=== PATIENT | female | born 1970 | race Caucasian/White ===

== ENCOUNTER 2021-08-26 08:13 | Outpatient (CLI) | payer MEDICARE, MEDICAID | END 2021-08-26 08:14 | disposition home or self-care (01) | LOC: BICCT 08:13 | PROVIDERS: ATTEND Student in an Organized Health Care Education/Training Program | DX: R10.84 Generalized abdominal pain (principal); N83.8 Other noninflammatory disorders of ovary, fallopian tube and broad ligament; Z90.49 Acquired absence of other specified parts of digestive tract; Z90.710 Acquired absence of both cervix and uterus | CPT/HCPCS: 74178 ==

== ENCOUNTER 2021-08-30 06:49 | Outpatient (CLI) | payer MEDICARE, MEDICAID | END 2021-08-30 06:50 | disposition home or self-care (01) | LOC: BICULT 06:49 | PROVIDERS: ATTEND Student in an Organized Health Care Education/Training Program | DX: N83.8 Other noninflammatory disorders of ovary, fallopian tube and broad ligament (principal) | CPT/HCPCS: 76856 ==

== ENCOUNTER 2022-11-14 12:56 | Emergency (ER) | payer OTHER, MEDICARE, MEDICAID | END 2022-11-14 14:34 | disposition home or self-care (01) | LOC: ERS 12:56 | DX: S52.501A Unspecified fracture of the lower end of right radius, initial encounter for closed fracture (principal); E03.9 Hypothyroidism, unspecified; W01.0XXA Fall on same level from slipping, tripping and stumbling without subsequent striking against object, initial encounter | CPT/HCPCS: 25500 ==

== ENCOUNTER 2022-12-28 07:00 | Outpatient (CLI) | payer MEDICARE, MEDICAID ==
[2022-12-28] MEDS ORDERED: Iopamidol 370 76% 100 ML VIAL ONE (11:05)
== END 2022-12-28 07:01 | disposition home or self-care (01) ==
LOC: CT 07:00
PROVIDERS: ATTEND Student in an Organized Health Care Education/Training Program
DX: R06.02 Shortness of breath (principal); R00.0 Tachycardia, unspecified; R79.89 Other specified abnormal findings of blood chemistry; J98.4 Other disorders of lung; I26.99 Other pulmonary embolism without acute cor pulmonale
CPT/HCPCS: 71275

== ENCOUNTER 2023-02-16 09:50 | Emergency (ER) | payer MEDICARE, MEDICAID | END 2023-02-16 11:41 | LOC: ERS 09:50 | DX: S09.90XA Unspecified injury of head, initial encounter (principal); E03.9 Hypothyroidism, unspecified; K21.9 Gastro-esophageal reflux disease without esophagitis; G40.909 Epilepsy, unspecified, not intractable, without status epilepticus; Z79.899 Other long term (current) drug therapy; W19.XXXA Unspecified fall, initial encounter | CPT/HCPCS: 70450 ==

== ENCOUNTER 2023-08-09 16:37 | Emergency (ER) | payer MEDICAID, MEDICARE | END 2023-08-09 19:39 | disposition home or self-care (01) | LOC: ERS 16:37 | DX: M79.641 Pain in right hand (principal); E03.9 Hypothyroidism, unspecified; K21.9 Gastro-esophageal reflux disease without esophagitis; G40.909 Epilepsy, unspecified, not intractable, without status epilepticus; Z79.899 Other long term (current) drug therapy ==